=== PATIENT | male | born 1985 | race African-American/Black ===

== ENCOUNTER 2021-04-25 11:14 | Emergency (ER) | payer MEDICAID ==
[~2021-04-25] VITALS: Ht 180.3 cm; Wt 100.0 kg
[2021-04-25] MEDS ORDERED: FLUORESCEIN SODIUM 1 MG STRIP OU ONE (13:00)
[2021-04-25] MEDS ORDERED: PROPARACAINE HCL 0.5% 15 ML OPHTHALMIC SOLUTION OS ONE (13:00)
[2021-04-25] MEDS ORDERED: ERYTHROMYCIN 0.5% 3.5 GM TUBE OPHTHALMIC OINTMENT OS ONE (13:45)
[2021-04-25 14:15] VITALS: BP 122/65
== END 2021-04-25 15:20 | disposition home or self-care (01) ==
LOC: EMS 11:27
DX: H10.9 Unspecified conjunctivitis (principal)
CPT/HCPCS: 99283